=== PATIENT | female | born 1985 | race Caucasian/White ===

== ENCOUNTER 2016-11-05 19:53 | Emergency (ER) | payer OTHER ==
[2016-11-05 19:53] VITALS: BMI 27.8
[2016-11-05 20:26] VITALS: BP 111/61; PULSE 90; RESP 20; TEMP 98.8; O2SAT 100
[2016-11-05] MEDS ORDERED: Tmp-Smz 800 mg-160 mg DS Tab PO STA (22:06)
[2016-11-05] MEDS ORDERED: Oxycodone/Acetaminophen 5/325 mg Tab PO STA (22:06)
[2016-11-05] MEDS ORDERED: Tmp-Smz 800 mg-160 mg DS Tab ONE (22:06)
[2016-11-05] MEDS ORDERED: Oxycodone/Acetaminophen 5/325 mg Tab ONE (22:07)
--- NOTE | 2016-11-05 22:07 | ED PDOC ---
HPI: Skin/Bite Injury Time Seen by Provider: 11/05/16 21:30 Chief Complaint (Nursing): Abnormal Skin Integrity Chief Complaint (Provider): Abscess History Per: Patient Additional Complaint(s): Pt c/o possible abscess on left axillary area X 2 days. Reports taking tylenol with mild relief. Past Medical History Reviewed: Nursing Documentation, Vital Signs Vital Signs: Last Vital Signs Temp 98.8 F 11/05/16 20:22 Pulse 90 11/05/16 20:22 Resp 20 11/05/16 20:22 BP 111/61 11/05/16 20:22 Pulse Ox 100 11/05/16 22:07 - Medical History PMH: No Chronic Diseases - Surgical History Surgical History: No Surg Hx - Family History Family History: States: No Known Family Hx - Living Arrangements Living Arrangements: With Family - Social History Current smoker - smoking cessation education provided: No Alcohol: None Drugs: Denies - Home Medications Home Medications: Ambulatory Orders Medication Instructions Recorded Vitamins6 [ 1 tab PO DAILY 03/30/14 Vitamin] Ibuprofen [Motrin] 600 mg PO Q6 #20 tab 11/05/16 oxyCODONE/Acetaminophen [Percocet 1 ea PO Q6 PRN #5 tab 11/05/16 5/325 mg Tab] Doxycycline Hyclate [Doryx] 100 mg PO BID #14 cap 11/09/16 - Allergies Allergies/Adverse Reactions: Allergies Allergy/AdvReac Type Severity Reaction Status Date / Time No Known Allergies Allergy Verified 11/09/16 16:16 Review of Systems ROS Statement: Except As Marked, All Systems Reviewed And Found Negative Skin: Positive for: Other (erythema) Physical Exam - Reviewed Nursing Documentation Reviewed: Yes Vital Signs Reviewed: Yes - Physical Exam Appears: Positive for: Well, Non-toxic, No Acute Distress Head Exam: Positive for: ATRAUMATIC, NORMAL INSPECTION, NORMOCEPHALIC Skin: Positive for: Normal Color, Warm, DRY Eye Exam: Positive for: EOMI, Normal appearance, PERRL ENT: Positive for: Normal ENT Inspection Neck: Positive for: Normal, Painless ROM Cardiovascular/Chest: Positive for: Regular Rate, Rhythm Respiratory: Positive for: CNT, Normal Breath Sounds Gastrointestinal/Abdominal: Positive for: Normal Exam, Bowel Sounds, Soft Back: Positive for: Normal Inspection Extremity: Positive for: Normal ROM Neurologic/Psych: Positive for: Alert, Oriented Comments: Left axilla: (+) 2 cm tender, erythematous indurated mass with centralized scab , surrounding by 5 cm of erythema - ECG O2 Sat by Pulse Oximetry: 100 Medical Decision Making Medical Decision Making: Needle aspiration preformed, no production of purulent material. Advised warm compresses and antibiotics as prescribed. Return to ED in 2 days for re-eval Disposition - Clinical Impression Clinical Impression: Abscess - Patient ED Disposition Is Patient to be Admitted: No - Disposition Disposition: Routine/Home Disposition Time: 23:00 Condition: STABLE Prescriptions: Ibuprofen [Motrin] 600 mg PO Q6 #20 tab oxyCODONE/Acetaminophen [Percocet 5/325 mg Tab] 1 ea PO Q6 PRN #5 tab PRN Reason: Pain, Severe (8-10) Instructions: Abscess (ED)
== END 2016-11-05 23:03 | disposition home or self-care (01) ==
LOC: H.ER 19:53
DX: L02.412 Cutaneous abscess of left axilla (principal)

== ENCOUNTER 2016-11-09 13:49 | Emergency (ER) | payer OTHER ==
[2016-11-09 13:49] VITALS: BMI 27.8
[2016-11-09 14:41] VITALS: PULSE 79; RESP 16; TEMP 96.7; O2SAT 100
[2016-11-09] MEDS ORDERED: Piperacillin/Tazobact 3.375 GM in Sodium Chloride 0.9% 100 ML IVPB STA (14:59)
[2016-11-09] MEDS ORDERED: Lidocaine 1% Inj (20ml) IJ ONE (14:59)
[2016-11-09] MEDS ORDERED: Lidocaine 1% Inj (20ml) ONE (15:11)
[2016-11-09 17:04] VITALS: BP 112/65
--- NOTE | 2016-11-09 17:45 | ED PDOC ---
HPI: Chest Pain Time Seen by Provider: 11/09/16 14:25 Chief Complaint (Nursing): Abnormal Skin Integrity Chief Complaint (Provider): Pain/swelling/redness to left chest wall History Per: Patient History/Exam Limitations: no limitations Onset/Duration Of Symptoms: Days (7 days) Current Symptoms Are (Timing): Still Present Additional Complaint(s): Sommer Miranda a 31 year old female patient, with no history of Diabetes presents to the ED complaining of pain, redness and swelling to the left side of the chest wall. The patient states that she visited the ED 4 days ago at which time a needle aspiration was done but no pus was obtained. She was then prescribed keflex and bactrim. Her symptoms since then have worsened. Denies fever. Primary Care Physician: NO FAMILY PROVIDER Past Medical History Reviewed: Historical Data, Nursing Documentation, Vital Signs Vital Signs: Last Vital Signs Temp 96.7 F L 11/09/16 14:38 Pulse 79 11/09/16 14:38 Resp 16 11/09/16 14:38 BP 112/65 11/09/16 16:24 Pulse Ox 100 11/09/16 18:31 - Medical History PMH: No Chronic Diseases Denies: Diabetes - Surgical History Surgical History: No Surg Hx - Family History Family History: States: Unknown Family Hx - Social History Current smoker - smoking cessation education provided: No Alcohol: None - Home Medications Home Medications: Ambulatory Orders Medication Instructions Recorded Vitamins6 [ 1 tab PO DAILY 03/30/14 Vitamin] Ibuprofen [Motrin] 600 mg PO Q6 #20 tab 11/05/16 oxyCODONE/Acetaminophen [Percocet 1 ea PO Q6 PRN #5 tab 11/05/16 5/325 mg Tab] Doxycycline Hyclate [Doryx] 100 mg PO BID #14 cap 11/09/16 - Allergies Allergies/Adverse Reactions: Allergies Allergy/AdvReac Type Severity Reaction Status Date / Time No Known Allergies Allergy Verified 11/09/16 16:16 Review of Systems Constitutional: Negative for: Fever Skin: Positive for: Other (pain, redness and swelling to the left side of the chest wall) Physical Exam - Reviewed Nursing Documentation Reviewed: Yes Vital Signs Reviewed: Yes - Physical Exam Appears: Positive for: Non-toxic, No Acute Distress Skin: Positive for: Normal Color, Warm, Dry Eye Exam: Positive for: Normal appearance ENT: Positive for: Normal ENT Inspection Cardiovascular/Chest: Positive for: Regular Rate, Rhythm, Other (chest is tender ; left axillary chest wall there is a erythemous papule with ruptured center and surrounding erythema and anterior to that there is a 3cm indurated non fluctuant mass.). Negative for: Murmur Respiratory: Positive for: Normal Breath Sounds Back: Positive for: Normal Inspection Neurologic/Psych: Positive for: Alert, Oriented - ECG O2 Sat by Pulse Oximetry: 100 (RA) Pulse Ox Interpretation: Normal Medical Decision Making Medical Decision Makin:25 Initial impression: Left Sided Chest Pain Initial Plan: * ED Urine * Lidocaine 1% 20ml * Reevaluation I&D performed by this provider, see procedure note for additional details. Upon provider reevaluation patient is feeling better, is medically stable, and requires no further treatment in the ED at this time. Patient will be discharged home with Rx Doryx 100mg PO BID . Counseling was provided and all questions were answered regarding diagnosis and need for follow up with PCP. There is agreement to discharge plan. Return if symptoms persist or worsen. Scribe Attestation: Documented by Marian Arthur training under Krystal Dorsey, acting as a scribe for Archie Fernandes PA-C. Provider Scribe Attestation: All medical record entries made by the Scribe were at my direction and personally dictated by me. I have reviewed the chart and agree that the record accurately reflects my personal performance of the history, physical exam, medical decision making, and the department course for this patient. I have also personally directed, reviewed, and agree with the discharge instructions and disposition. Procedures - Time-Out Type of Procedure: Incision and drainage Site of Procedure: L axillary chest wall Correct Patient: Yes Correct Procedure: Yes Correct Site Marked: Yes PA/Tech: Dena - Incision and Drainage Site: L axillary chest wall Blade Size: 11 I & D Procedure: betadine prep, sterile drapes applied, sterile dressing applied , gauze wick placed Progress: purulent material was expressed from most anterior abscess but not from posterior one Disposition - Clinical Impression Clinical Impression: Abscess, Cellulitis - Patient ED Disposition Is Patient to be Admitted: No Counseled Patient/Family Regarding: Diagnosis, Need For Followup, Rx Given - Disposition Disposition: Routine/Home Disposition Time: 15:35 Condition: STABLE Additional Instructions: Return to ED in 2 days for wound check and packing removal. Return to ED immediately if pain worsens or if temperature of 100.4 or above develops. Continue taking Ibuprofen for pain. Stop taking Cephalexin and Bactrim DS. Prescriptions: Doxycycline Hyclate [Doryx] 100 mg PO BID #14 cap Instructions: Cellulitis (ED), Abscess (ED)
== END 2016-11-09 16:24 | disposition home or self-care (01) ==
LOC: H.ER 13:49
DX: L02.213 Cutaneous abscess of chest wall (principal)

== ENCOUNTER 2016-11-11 13:51 | Emergency (ER) | payer OTHER ==
[2016-11-11 13:58] VITALS: BP 105/63; PULSE 68; RESP 16; TEMP 98; BMI 26.6
[2016-11-11 14:00] VITALS: O2SAT 98
--- NOTE | 2016-11-11 14:22 | ED PDOC ---
HPI: Wound Care - HPI Time Seen by Provider: 11/11/16 14:02 Chief Complaint (Nursing): Wound Check Chief Complaint (Provider): Packing removal History Per: Patient Current Symptoms Are (Timing): Better Quality Of Symptoms: Painful Severity: Mild Pain Scale Rating Of: 3 Additional Complaint(s): Abscess drained on 09/11/16. Pt states the pain has been improving. PT comes to ER for packing removal. Pt reports taking antibiotics as prescribed. No fevers/ chills. Past Medical History Reviewed: Historical Data, Nursing Documentation, Vital Signs Vital Signs: Last Vital Signs Temp 98.0 F 11/11/16 13:57 Pulse 68 11/11/16 13:57 Resp 16 11/11/16 13:57 BP 105/63 11/11/16 13:57 Pulse Ox 98 11/11/16 13:59 - Medical History PMH: No Chronic Diseases Denies: Diabetes - Family History Family History: States: Unknown Family Hx - Home Medications Home Medications: Ambulatory Orders Medication Instructions Recorded Vitamins6 [ 1 tab PO DAILY 03/30/14 Vitamin] Ibuprofen [Motrin] 600 mg PO Q6 #20 tab 11/05/16 oxyCODONE/Acetaminophen [Percocet 1 ea PO Q6 PRN #5 tab 11/05/16 5/325 mg Tab] Doxycycline Hyclate [Doryx] 100 mg PO BID #14 cap 11/09/16 - Allergies Allergies/Adverse Reactions: Allergies Allergy/AdvReac Type Severity Reaction Status Date / Time No Known Allergies Allergy Verified 11/09/16 16:16 Review of Systems ROS Statement: Except As Marked, All Systems Reviewed And Found Negative Skin: Positive for: Other Physical Exam - Reviewed Nursing Documentation Reviewed: Yes Vital Signs Reviewed: Yes - Physical Exam Appears: Positive for: Well, Non-toxic, No Acute Distress Head Exam: Positive for: ATRAUMATIC, NORMAL INSPECTION, NORMOCEPHALIC Skin: Positive for: Warm. Negative for: Normal Color (Pack removed from 2 areas left side, area continues to be indurated ) Eye Exam: Positive for: Normal appearance ENT: Positive for: Normal ENT Inspection Neck: Positive for: Normal, Painless ROM Cardiovascular/Chest: Positive for: Regular Rate, Rhythm Respiratory: Positive for: CNT, Normal Breath Sounds Gastrointestinal/Abdominal: Positive for: Normal Exam, Bowel Sounds, Soft Back: Positive for: Normal Inspection Extremity: Positive for: Normal ROM Neurologic/Psych: Positive for: Alert, Oriented - ECG O2 Sat by Pulse Oximetry: 98 Medical Decision Making Medical Decision Making: Discussed warm compresses and continued antibiotics. Disposition - Clinical Impression Clinical Impression: Wound check, abscess - Patient ED Disposition Is Patient to be Admitted: No Counseled Patient/Family Regarding: Diagnosis, Need For Followup - Disposition Referrals: [facility] [Outside] Disposition: Routine/Home Disposition Time: 14:12 Condition: GOOD Instructions: Abscess (ED)
== END 2016-11-11 14:25 | disposition home or self-care (01) ==
LOC: H.ER 13:51
DX: Z48.00 Encounter for change or removal of nonsurgical wound dressing (principal)

== ENCOUNTER 2017-03-15 17:23 | Emergency (ER) | payer OTHER ==
[2017-03-15 17:23] VITALS: BMI 26.6
[2017-03-15 17:31] VITALS: BP 122/74; PULSE 80; RESP 18; TEMP 97.8; O2SAT 99
--- NOTE | 2017-03-15 18:27 | ED PDOC ---
HPI: Chest Pain History Per: Patient (31 yo female with no significant PMHx presents with intermittent chest pain for the past 4 days. She localizes the pain over the left sternum, and describes the pain as sharp, non radiating, and unrelated to exertion or meals. The episodes often occur when she is at rest, lasts 20seconds to 1 minute, occurs 3-5x daily and resolves spontaneosly. She denies SOB associated with the chest pain, n/v/d, heart burn, cough, fever, weight loss , fatigue.) History/Exam Limitations: no limitations <Dheeraj Hu - Last Filed: 03/15/17 18:45> <Otilia Slater - Last Filed: 03/15/17 18:52> Time Seen by Provider: 03/15/17 17:34 Chief Complaint (Nursing): Chest Pain Supervising Attending Note - Supervising Attending Note The Documented history was done by the: Physician Healthcare Science Specialist The documented physical exam was done by the: Physician Healthcare Science Specialist The documented procedures were done by the: Physician Healthcare Science Specialist - Attestation: I have personally seen and examined this patient.: Yes I have fully participated in the care of the patient.: Yes I have reviewed all pertinent clinical information: Yes <Otilia Slater - Last Filed: 03/15/17 18:52> Past Medical History - Medical History PMH: Denies: Diabetes, GERD, HTN - Surgical History Surgical History: Denies: No Surg Hx - Family History Family History: States: Unknown Family Hx Other Family History: Father- CAD s/p stent at age 50. Paternal Grandfather- Heart surgery at age 80. Maternal Grandfather- CAD s/p stent. Maternal Grandmother- Diabetes - Living Arrangements Living Arrangements: With Family - Social History Current smoker - smoking cessation education provided: No Drugs: Denies <Dheeraj Hu - Last Filed: 03/15/17 18:45> <Otilia Slater - Last Filed: 03/15/17 18:52> Vital Signs: Last Vital Signs Temp 97.8 F 03/15/17 17:29 Pulse 80 03/15/17 17:29 Resp 18 03/15/17 17:29 BP 122/74 03/15/17 17:29 Pulse Ox 99 03/15/17 18:46 - Home Medications Home Medications: Ambulatory Orders Medication Instructions Recorded Vitamins6 [ 1 tab PO DAILY 03/30/14 Vitamin] Ibuprofen [Motrin] 600 mg PO Q6 #20 tab 11/05/16 oxyCODONE/Acetaminophen [Percocet 1 ea PO Q6 PRN #5 tab 11/05/16 5/325 mg Tab] Doxycycline Hyclate [Doryx] 100 mg PO BID #14 cap 11/09/16 - Allergies Allergies/Adverse Reactions: Allergies Allergy/AdvReac Type Severity Reaction Status Date / Time No Known Allergies Allergy Verified 11/09/16 16:16 KAMILA Risk Score for UA/NSTEMI - KAMILA Risk Score 3 or more CAD Risk Factors: NO Known CAD (Stenosis greater than 50%): NO Aspirin use in past 7 days: NO Severe Angina: NO Positive Cardiac Marker: NO KAMILA Score: 0 Risk %: 5% <Dheeraj Hu - Last Filed: 03/15/17 18:45> Review of Systems Constitutional: Negative for: Fever, Chills, Weakness, Weight loss Cardiovascular: Negative for: Palpitations, Edema Respiratory: Negative for: Cough, SOB with Exertion, Wheezing Gastrointestinal: Negative for: Nausea, Vomiting, Abdominal Pain, Diarrhea Musculoskeletal: Negative for: Shoulder Pain, Arm Pain Skin: Negative for: Rash Psych: Negative for: Anxiety <Dheeraj Hu - Last Filed: 03/15/17 18:45> ROS Statement: Except As Marked, All Systems Reviewed And Found Negative ENT: Negative for: Throat Pain Neurological: Negative for: Weakness <Otilia Slater - Last Filed: 03/15/17 18:52> Physical Exam - Physical Exam Appears: Positive for: Well, No Acute Distress Skin: Positive for: Normal Color, Dry. Negative for: Diaphoresis, Rash (No rashes, skin lesions, or vesicles over anterior chest wall) Cardiovascular/Chest: Positive for: Regular Rate, Rhythm, Other (Tenderness to palpation over left sternal border). Negative for: Murmur Respiratory: Positive for: Normal Breath Sounds. Negative for: Crackles, Wheezing Gastrointestinal/Abdominal: Positive for: Normal Exam, Soft. Negative for: Tenderness Neurologic/Psych: Positive for: Alert, Oriented <Deheraj Hu - Last Filed: 03/15/17 18:45> - Reviewed Nursing Documentation Reviewed: Yes Vital Signs Reviewed: Yes - Physical Exam Appears: Positive for: Well, Non-toxic, No Acute Distress Head Exam: Positive for: ATRAUMATIC, NORMAL INSPECTION, NORMOCEPHALIC Skin: Positive for: Normal Color, Warm, DRY Eye Exam: Positive for: Normal appearance, EOMI ENT: Positive for: Normal ENT Inspection Neck: Positive for: Normal, Painless ROM Cardiovascular/Chest: Positive for: Regular Rate, Rhythm Respiratory: Positive for: CNT, Normal Breath Sounds Gastrointestinal/Abdominal: Positive for: Normal Exam, Bowel Sounds, Soft Back: Positive for: Normal Inspection Extremity: Positive for: Normal ROM Lymphatic: Negative for: Axilla Node Tenderness (left side) Neurologic/Psych: Positive for: Alert, Oriented <Otilia Slater - Last Filed: 03/15/17 18:52> - ECG ECG: Positive for: Interpreted By Me, Viewed By Me (Normal Sinus Rythm; No acute ischemic changes) O2 Sat by Pulse Oximetry: 99 - Progress Condition: Improved <Dheeraj Hu - Last Filed: 03/15/17 18:45> <Otilia Slater - Last Filed: 03/15/17 18:52> - Progress ED Course And Treament: EKG (Dheeraj Hu) Medical Decision Making <Dheeraj Hu - Last Filed: 03/15/17 18:45> <Otilia Slater - Last Filed: 03/15/17 18:52> Medical Decision Making: Pt is a 31 yo F with no significant PMHx presenting with intermittent atypical chest pain likely benign and related to musculoskeletal as the CP is reproducible to palpation. Pt is stable for discharge and will follow up outpatient with her PMD (Dheeraj Hu) Disposition - Patient ED Disposition Is Patient to be Admitted: No - Disposition Disposition: Routine/Home Disposition Time: 18:37 - POA Present On Arrival: None <Dheeraj Hu - Last Filed: 03/15/17 18:45> <Otilia Slater - Last Filed: 03/15/17 18:52> - Clinical Impression Clinical Impression: Atypical chest pain - Disposition Referrals: Casi Fleming MD [Medical Doctor] - Condition: IMPROVED Instructions: Chest Wall Pain (ED) Forms: [employer] (Slovenian)
== END 2017-03-15 18:58 | disposition home or self-care (01) ==
LOC: H.ER 17:23
DX: F07.89 Other personality and behavioral disorders due to known physiological condition (principal)